=== PATIENT | male | born 1980 | race Caucasian/White ===

== ENCOUNTER 2021-01-20 12:43 | Inpatient (IN) | payer MEDICAID ==
[~2021-01-20] VITALS: Ht 167.6 cm; Wt 46.9 kg
--- NOTE | 2021-01-20 13:30 | NUR ---
BIBS. TO ER BED 6. AAOX4 NOT IN RESP DISTRESS. AMBULATORY. CAME IN FOR A CHRONIC WOUND PERIANALLY TAHT IS EXTENDING TO THE LEFT AND RIGHT BUTTOCKS. WOUND HAS BEEN SINCE LAST MARCH. NOTED RED TISUE THAT HAVE WHITE SPOTS. AWAITING MD FOR REYNA
[2021-01-20 15:35] LABS: BASOPHILS % (AUTO) 0.3 % (0.0-2.0); EOSINOPHILS % (AUTO) 2.2 % (0.0-6.0); LYMPHOCYTES # (AUTO) 0.4 /CMM (0.8-4.8); LYMPHOCYTES % (AUTO) 7.1 % (20.0-44.0); MEAN CORPUSCULAR HGB CONC 32 g/dl (31.0-36.0); MEAN CORPUSCULAR VOLUME 82 fL (80-96); MONOCYTES # (AUTO) 0.6 /CMM (0.1-1.30); MONOCYTES % (AUTO) 10.8 % (2.0-12.0); NEUTROPHILS # (AUTO) 4.4 /CMM (1.8-8.9); NEUTROPHILS % (AUTO) 79.6 % (43.0-81.0); PLATELET COUNT (AUTO) 272 /CMM (150-450); RED BLOOD CELL COUNT(AUTO) 2.11 MIL/uL (4.5-6.0); WHITE BLOOD COUNT (AUTO) 5.6 K/uL (4.3-11.0)
[2021-01-20 15:52] LABS: HEMATOCRIT 17 % (39-51); HEMOGLOBIN 5.5 g/dL (13.5-17.5)
[2021-01-20] MEDS ORDERED: DOXYCYCLINE HYCLATE (100 MG) 100 MG TABLET PO ONE (16:00)
[2021-01-20] MEDS ORDERED: CEFTRIAXONE 1 G in IV D5W 50 ML IM ONE (16:00)
[2021-01-20 16:07] LABS: BAND % (MANUAL) 1 % (0.0-5.0); EOSINOPHILS % (MANUAL) 3 % (0-4); LYMPHOCYTES % (MANUAL) 9 % (16-48); MONOCYTES % (MANUAL) 4 % (0-11.0); NEUTROPHILS % (MANUAL) 83 (42-76)
[2021-01-20] MEDS ORDERED: DOXYCYCLINE HYCLATE (100 MG) 100 MG TABLET ONE (16:17)
[2021-01-20] MEDS ORDERED: LIDOCAINE /MPF 1% VIAL 5 ML VIAL ONE (16:17)
[2021-01-20] MEDS ORDERED: CEFTRIAXONE 1 G VIAL ONE (16:17)
[2021-01-20 16:50] LABS: CALCIUM, SERUM 8.7 mg/dL (8.5-10.1); POTASSIUM 4.9 mmol/L (3.5-5.1)
--- NOTE | 2021-01-20 17:30 | NUR ---
CALLED NURSING SUP FOR TELE BED.
--- NOTE | 2021-01-20 18:04 | NUR ---
CALLED NURSING SUP FOR UPDATE ON COVID TEST.
--- NOTE | 2021-01-20 18:20 | NUR ---
NURSING SUP GAVE 310-2. PATIENT WILL GO UP AFTER CHANGE OF SHIFT. NURSE IS MIMI.
[2021-01-20] MEDS ORDERED: ONDANSETRON HCL/PF 4 MG/2 ML VIAL IVP PRN (18:30)
[2021-01-20] MEDS ORDERED: MAGNESIUM HYDROXIDE 30 ML UDC PO PRN (18:30)
[2021-01-20] MEDS ORDERED: Z GUARD REMEDY 2 OZ OINT TP PRN (18:30)
[2021-01-20] MEDS ORDERED: ACETAMINOPHEN 325 MG TABLET PO PRN (18:30)
[2021-01-20] MEDS ORDERED: HYDROCODONE/APAP 5/325MG TABLET PO PRN (18:30)
[2021-01-20] MEDS ORDERED: ZOLPIDEM TARTRATE 5 MG TABLET PO PRN (18:30)
[2021-01-20] MEDS ORDERED: MAG HYDROX/AL HYDROX/SIMETH 30 ML UDC PO PRN (18:30)
[2021-01-20 19:25] LABS: BILIRUBIN,URINE Negative (NEGATIVE); COLOR,URINE YELLOW (YELLOW); LEUKOCYTE ESTERASE ,URINE Negative (NEGATIVE); NITRITE, URINE Negative (NEGATIVE); PH,URINE 7.5 (5.0-8.0); PROTEIN,URINE Negative (NEGATIVE); UGLUCOSE Negative (NEGATIVE)
--- NOTE | 2021-01-20 19:27 | NUR ---
REPORT GIVEN TO ANUP CLINE FOR TONY
[2021-01-20 19:41] LABS: IRON, SERUM 21 ug/dl (50-175); TOTAL IRON BINDING CAPACITY 171 ug/dl (250-450)
--- NOTE | 2021-01-20 19:51 | NUR ---
VERIFIED WITH TIMOTHY RITCHIE DNP THAT PT IS TO REMAIN TELE PT.
[2021-01-20 20:00] VITALS: BP 97/49
--- NOTE | 2021-01-20 20:21 | NUR ---
BLOOD TRANSFUSION STARTED. VERIFIED BY ANUP CHI
--- NOTE | 2021-01-20 20:38 | NUR ---
VS taken. No noted s/s adverse reaction.
[2021-01-20 20:40] VITALS: BP 97/49
--- NOTE | 2021-01-20 20:51 | NUR ---
pt transported to unit on gurney with emt and rn at bedside w/ acls protocol. nad noted during transport.
[2021-01-20 21:00] VITALS: BP 109/55
--- NOTE | 2021-01-20 21:00 | NUR ---
RN Opening notes Received Pt from ER nurse, ANUP Lala. Pt arrived at the unit with a gurney and ACLS protocol. Pt is alert and orientedX4. Respiration is normal in room air. No SOB. No S/S of distress noted. Pt came with one unit PRBC transfusing. Blood transfusion started at 2019. Blood consent is signed by Pt. No S/S of distress noted. No transfusion reaction noted. IV site at LAC# 20 is clean, intact and infusing well blood transfusion. Skin assessment is done and performed and picture of pt's sacrum is taken placed at pt's chart. Pt's belonging is checked by ANNETTE Higginbotham, signed by pt and placed at pt's chart. Reorient Pt to the room and the use of call light. Pt verbalized understanding. Safety precautions is maintained. Bed at low position, brakes locked, side rails upX2 and call light is within reach. Will continue to monitor.
[2021-01-20 21:30] VITALS: BP 123/63
[2021-01-20] MEDS: FLUCONAZOLE (100 MG) 100 MG TABLET PO SCH (21:44)
--- NOTE | 2021-01-20 22:10 | NUR ---
RN notes Pt refused to have SCD compression. Explained risks and benefits. Offered multiple times. Pt keep refusing. Will continue to monitor.
[2021-01-20 22:30] VITALS: BP 117/57
[2021-01-20 22:42] LABS: RBC,URINE 0-2 /HPF (0-2); WBC,URINE 0-2 /HPF (0-3)
[2021-01-20 22:43] LABS: BACTERIA,URINE Rare /HPF (None Seen); SQUAMOUS EPITHELIAL CELL,UR 0-2 /HPF (None Seen)
[2021-01-20 23:30] VITALS: BP 110/56
[2021-01-21] VITALS (10 sets, daily range): BP systolic 93–110; BP diastolic 43–61
--- NOTE | 2021-01-21 00:30 | NUR ---
RN notes 1 Unit PRBC is done transfusing. No S/S of distress noted. No transfusion reaction noted. VS is stable. Pt tolerated well. Will continue to monitor.
--- NOTE | 2021-01-21 00:40 | NUR ---
RN notes Went to lab to picker and sorter load and unload blood.
--- NOTE | 2021-01-21 00:55 | NUR ---
RN notes Second unit of PRBC is started infusing. PRBC is checked and witness by ANUP Swenson. VS is stable. Afebrile. Pt verbalize understanding. Will continue to monitor.
--- NOTE | 2021-01-21 04:37 | NUR ---
RN notes Second blood transfusion is finished. VS is stable. Afebrile. No S/S of distress noted. No transfusion reaction noted. Pt tolerated well. Will continue to monitor.
[2021-01-21] MEDS: IV NS 0.9% 1,000 ML IV PRN ×2 (04:43→21:12)
--- NOTE | 2021-01-21 06:50 | NUR ---
RN MS closing notes Pt is resting in bed comfortably. Pt is alert and orientedX4. Respiration is normal in room air with O2 sat is 100%. No SOB. No S/S of distress noted. VS is stable. Afebrile. IV site at L forearm# 20 is clean, intact, flushes well and infuising well NS@ 75 ml/hr. Wound care provided. Safety precautions is maintained. Bed at low position, brakes locked, side rails upX2, urinal at the bed side and call light is within reach. Will endorse to morning nurse for TONY.
--- NOTE | 2021-01-21 07:30 | NUR ---
MS RN OPENING NOTES PATIENT IN BED, AWAKE, A/O X 4. PATIENT'S BREATHING EVEN AND UNLABORED, NO S/S OF RESPIRATORY DISTRESS, NO SOB OR DYSPNEA. IV FLUIDS RUNNING. PATIENT TOLERATING ROOM AIR AT 98% O2 SAT. SAFETY PRECAUTIONS IN PLACE: BED LOCKED AND IN LOWEST POSITION, SIDE RAILS UP, URINAL AND CALL LIGHT WITHIN REACH. ENCOURAGED PATIENT TO USE CALL LIGHT IF IN NEED.
[2021-01-21 07:53] LABS: BASOPHILS % (AUTO) 0.5 % (0.0-2.0); EOSINOPHILS % (AUTO) 2.4 % (0.0-6.0); HEMATOCRIT 25 % (39-51); HEMOGLOBIN 8.1 g/dL (13.5-17.5); LYMPHOCYTES # (AUTO) 0.4 /CMM (0.8-4.8); LYMPHOCYTES % (AUTO) 6.9 % (20.0-44.0); MEAN CORPUSCULAR HGB CONC 32 g/dl (31.0-36.0); MEAN CORPUSCULAR VOLUME 84 fL (80-96); MONOCYTES # (AUTO) 0.6 /CMM (0.1-1.30); MONOCYTES % (AUTO) 10.7 % (2.0-12.0); NEUTROPHILS # (AUTO) 4.3 /CMM (1.8-8.9); NEUTROPHILS % (AUTO) 79.5 % (43.0-81.0); PLATELET COUNT (AUTO) 256 /CMM (150-450); WHITE BLOOD COUNT (AUTO) 5.4 K/uL (4.3-11.0)
[2021-01-21 08:12] LABS: CALCIUM, SERUM 8.1 mg/dL (8.5-10.1); CARBON DIOXIDE 20 mmol/L (21-32); CHLORIDE 97 mmol/L (98-107); CREATININE 0.7 mg/dL (0.6-1.3); GLUCOSE 100 mg/dL (74-106); PHOSPHORUS 3.3 mg/dL (2.5-4.9); POTASSIUM 4.2 mmol/L (3.5-5.1); SODIUM SERUM 128 mmol/L (136-145); UREA NITROGEN, BLOOD 13 mg/dL (7-18)
[2021-01-21 08:26] LABS: CHOLESTEROL 56 mg/dL (<200); LDL 18 mg/dL (0-99); THYROID STIMULATING HORMONE 3.888 uIU/mL (0.358-3.74); TRIGLYCERIDES 228 mg/dL (30-150)
[2021-01-21 08:29] LABS: HDL CHOLESTEROL < 10 mg/dL (40-60)
[2021-01-21] MEDS: PANTOPRAZOLE 40 MG TABLET.DR PO SCH (08:35)
[2021-01-21] MEDS: FLUCONAZOLE (100 MG) 100 MG TABLET PO SCH (08:35)
[2021-01-21] MEDS: SULFAMETH/TRIMETH 800/160 MG 1 UDTAB TABLET PO SCH (08:35)
--- NOTE | 2021-01-21 09:00 | NUR ---
ms disla breakfast served,due meds given,tolerated well.
[2021-01-21] MEDS: DOXYCYCLINE 100 MG in IV D5W 100 ML IV SCH ×2 (09:01→21:11)
--- NOTE | 2021-01-21 11:00 | NUR ---
ms disla was seen by dr. parker ceja/ orders made and carried out.
--- NOTE | 2021-01-21 14:50 | NUR ---
ms rn went down for ct abdomen, will wait for result.
--- NOTE | 2021-01-21 15:10 | NUR ---
ms rn came back from ut, all needs attended.
[2021-01-21] MEDS ORDERED: CEFTRIAXONE 1 G in IV D5W 50 ML IV SCH (17:00)
--- NOTE | 2021-01-21 17:52 | NUR ---
ms rn on bed,no distress noted.
[2021-01-21] MEDS ORDERED: HYDROGEL DRESSING 90 GM TUBE TP PRN (18:30)
--- NOTE | 2021-01-21 19:08 | NUR ---
MS RN CHANGE OF SHIFT NOTES PATIENT IN BED, AWAKE, A/O X 4. PATIENT'S BREATHING EVEN AND UNLABORED, NO S/S OF RESPIRATORY DISTRESS, NO SOB OR DYSPNEA. IV FLUIDS RUNNING AT 75ML/HR. PATIENT TOLERATING ROOM AIR AT 95% O2 SAT. WOUND CARE GIVEN, WOUND COVERED WITH FOAM DRESSING. SAFETY PRECAUTIONS IN PLACE: BED LOCKED AND IN LOWEST POSITION, SIDE RAILS UP, URINAL AND CALL LIGHT WITHIN REACH. ENCOURAGED PATIENT TO USE CALL LIGHT IF IN NEED. ENDORSED TO SOCKET WELDER HELPER NURSE.
[2021-01-21] MEDS: ACYCLOVIR 200 MG CAPSULE PO SCH (21:11)
--- NOTE | 2021-01-22 07:36 | NUR ---
MS RN OPENING NOTES RECEIVED PATIENT IN BED AWAKE, A/O X 4. ABLE TO MAKE NEEDS KNOWN, DENIES PAIN OR ANY DISCOMFORTS AT THIS TIME. ON ROOM AIR, BREATHING EVEN AND UNLABORED. IV ACCESS ON LFA G#20 INTACT AND PATENT WITH IVF OF NS @75ML/HR INFUSING WELL. SAFETY PRECAUTIONS IN PLACE: BED LOCKED AND IN LOWEST POSITION, SIDE RAILS UPX2 AND CALL LIGHT WITHIN REACH. WILL CONTINUE TO MONITOR PT ACCORDINGLY.
[2021-01-22 08:06] LABS: *BASOS 0 % (Not Estab.); *COMMENTS Note: (.); *EOS 3 % (Not Estab.); *EOS, ABSOLUTE 0.2 x10E3/uL (0.0-0.4); *HCT 17.5 % (37.5-51.0); *HGB 5.2 g/dL (13.0-17.7); *IMMATURE GRANULOCYTES 1 % (Not Estab.); *IMMATURE GRANULOCYTES(ABS) 0.1 x10E3/uL (0.0-0.1); *LYMPHOCYTES 10 % (Not Estab.); *LYMPHS, ABSOLUTE 0.6 x10E3/uL (0.7-3.1); *MCH 24.9 pg (26.6-33.0); *MCHC 29.7 g/dL (31.5-35.7); *MCV 84 fL (79-97); *MONOCYTES 8 % (Not Estab.); *MONOS, ABSOLUTE 0.5 x10E3/uL (0.1-0.9); *NEUTROPHILS 78 % (Not Estab.); *NEUTROPHILS, ABSOLUTE 4.4 x10E3/uL (1.4-7.0); *PLT 249 x10E3/uL (150-450); *RBC 2.09 x10E6/uL (4.14-5.80); *RDW 18.3 % (11.6-15.4)
[2021-01-22] MEDS: PANTOPRAZOLE 40 MG TABLET.DR PO SCH (08:29)
[2021-01-22] MEDS: FLUCONAZOLE (100 MG) 100 MG TABLET PO SCH (08:30)
[2021-01-22] MEDS: SULFAMETH/TRIMETH 800/160 MG 1 UDTAB TABLET PO SCH (08:30)
[2021-01-22] MEDS: ACYCLOVIR 200 MG CAPSULE PO SCH ×2 (08:46→17:11)
[2021-01-22] MEDS: DOXYCYCLINE 100 MG in IV D5W 100 ML IV SCH ×2 (09:38→20:41)
--- NOTE | 2021-01-22 11:32 | NUR ---
RN NOTES BUTTOCK WOUND AND URINE SPECIMEN COLLECTED. CALLED LAB TO COMPOSITION SIDING WORKER SPECIMENS.
[2021-01-22] MEDS: MEROPENEM 1 G in IV NS 0.9% 100 ML IV SCH ×2 (12:15→21:11)
[2021-01-22 12:23] LABS: BASOPHILS % (AUTO) 0.5 % (0.0-2.0); EOSINOPHILS % (AUTO) 1.4 % (0.0-6.0); HEMATOCRIT 29 % (39-51); HEMOGLOBIN 9.1 g/dL (13.5-17.5); LYMPHOCYTES # (AUTO) 0.3 /CMM (0.8-4.8); LYMPHOCYTES % (AUTO) 6.7 % (20.0-44.0); MEAN CORPUSCULAR HGB CONC 32 g/dl (31.0-36.0); MEAN CORPUSCULAR VOLUME 84 fL (80-96); MONOCYTES # (AUTO) 0.5 /CMM (0.1-1.30); MONOCYTES % (AUTO) 10.3 % (2.0-12.0); NEUTROPHILS # (AUTO) 4.2 /CMM (1.8-8.9); NEUTROPHILS % (AUTO) 81.1 % (43.0-81.0); PLATELET COUNT (AUTO) 241 /CMM (150-450); RED BLOOD CELL COUNT(AUTO) 3.39 MIL/uL (4.5-6.0); WHITE BLOOD COUNT (AUTO) 5.1 K/uL (4.3-11.0)
[2021-01-22 12:33] LABS: CALCIUM, SERUM 8.3 mg/dL (8.5-10.1); CREATININE 0.8 mg/dL (0.6-1.3); PHOSPHORUS 3.1 mg/dL (2.5-4.9); POTASSIUM 4.5 mmol/L (3.5-5.1)
[2021-01-22 12:45] LABS: THYROID STIMULATING HORMONE 2.417 uIU/mL (0.358-3.74); URIC ACID 2.8 mg/dL (2.6-7.2)
[2021-01-22 13:13] LABS: ALBUMIN 2.2 g/dL (3.4-5.0); BILIRUBIN,TOTAL 0.3 mg/dL (0.2-1.0); CALCIUM, SERUM 8.3 mg/dL (8.5-10.1); CREATININE 0.8 mg/dL (0.6-1.3); MAGNESIUM 1.9 mg/dL (1.8-2.4); POTASSIUM 4.4 mmol/L (3.5-5.1); TOTAL PROTEIN, SERUM 7.1 g/dL (6.4-8.2)
[2021-01-22 16:00] VITALS: BP 102/55
[2021-01-22] MEDS ORDERED: MEROPENEM 1 G in IV NS 0.9% 100 ML IV SCH (17:00)
--- NOTE | 2021-01-22 18:40 | NUR ---
MS RN CLOSING NOTES PATIENT AWAKE AND RESTING IN BED AT THIS TIME. A/O X 4. ABLE TO MAKE NEEDS KNOWN. AMBULATORY WITH STEADY GAIT. TOLERATING ROOM AIR WITH NO SOB NOTED DURING SHIFT. IV ACCESS ON LFA G#20 INTACT AND PATENT WITH IVF OF NS @75ML/HR INFUSING WELL, NO S/S OF INFILTRATION AT SITE NOTED. ALL NEEDS AND CARE ATTENDED WELL. SAFETY PRECAUTIONS IN PLACE: BED LOCKED AND IN LOWEST POSITION, SIDE RAILS UPX2 AND CALL LIGHT WITHIN REACH. WILL ENDORSE PLAN OF CARE TO GERIATRIC NURSING ASSISTANT NURSE.
[2021-01-22] MEDS: IV NS 0.9% 1,000 ML IV PRN (19:07)
[2021-01-22 20:00] VITALS: BP 104/58
--- NOTE | 2021-01-22 20:00 | NUR ---
RN NOTES RECEIVED PATIENT IN BED, ALERT AND ORIENTED X4, STABLE ON ROOM AIR, NO COMPLAIN OF PAIN, NO DISTRESS, IVF INFUSING, USES URINAL TO VOID, AMBULATES TO THE TOILET WITH SUPERVISION, KEPT DRY AND CLEAN, WILL CONTINUE TO MONITOR
--- NOTE | 2021-01-23 04:20 | NUR ---
RN NOTES REPORTED BY COLLEGE OF EDUCATION DEAN, TEMP 100.1, RECHECKED TEMP 99.8F ORAL, GIVEN TYLENOL, PATIENT REFUSING TO REMOVE EXTRA BLANKET
--- NOTE | 2021-01-23 04:28 | NUR ---
RN NOTES NOTIFIED SEMICONDUCTOR WAFERS SAW OPERATOR ERMA TEMP 100.1F ORAL, PATIENT ON MERREM AND DOXYCYCLINE, NO NEW ORDER.
[2021-01-23] MEDS: MEROPENEM 1 G in IV NS 0.9% 100 ML IV SCH ×3 (04:34→21:34)
--- NOTE | 2021-01-23 06:30 | NUR ---
RN NOTES PM SHIFT ALERT AND ORIENTED X4, ROOM AIR, NO COMPLAIN OF PAIN, NO DISTRESS, USES URINAL, PROSTITIS BILATERAL BUTTOCKS, KEPT DRY AND CLEAN, AWAITING WOUND CARE CONSULT, MERREM Q8HRS AND DOXYCYCLINE Q12HRS, FOLLOW UP CULTURES, MONITOR H/H, TRANSFUSE PRN, IVF AT 75ML/HR
--- NOTE | 2021-01-23 07:20 | NUR ---
MS RN OPENING NOTES PATIENT AWAKE AND WATCHING TV IN BED AT THIS TIME. A/O X 4. ABLE TO MAKE NEEDS KNOWN. AMBULATORY WITH STEADY GAIT. TOLERATING ROOM AIR WITH NO SOB NOTED. IV ACCESS ON LFA G#20 INTACT AND PATENT WITH IVF OF NS @75ML/HR INFUSING WELL. ALL NEEDS AND CARE ATTENDED WELL. SAFETY PRECAUTIONS IN PLACE: BED LOCKED AND IN LOWEST POSITION, SIDE RAILS UPX2 AND CALL LIGHT WITHIN REACH. WILL CONTINUE TO MONITOR THE PT.
[2021-01-23 08:18] VITALS: BP 90/54
[2021-01-23] MEDS: PANTOPRAZOLE 40 MG TABLET.DR PO SCH (08:23)
--- NOTE | 2021-01-23 08:49 | NUR ---
WOUND CARE CONSULT: PT PRESENTS WITH DRY LESIONS TO INNER BUTTOCKS AND LEFT BUTTOCK, PRESENT ON ADMISSION. PT REPORTS THAT HE HAD LESIONS PREVIOUSLY AND THAT THEY CLEARED UP, THEN RECURRED. DEFER TO INFECTIOUS DISEASE TEAM CURRENTLY ON CASE. DISCUSSED SKIN PROTECTION WITH NURSING STAFF. WILL SEE PRN. ALVAREZ IN AGREEMENT WITH PLAN OF CARE. Addendum: 01/23/21 at 0891 by FELICIA GAUTAM WNDNU Amended: Links added.
[2021-01-23] MEDS: DOXYCYCLINE 100 MG in IV D5W 100 ML IV SCH (09:01)
[2021-01-23] MEDS: SULFAMETH/TRIMETH 800/160 MG 1 UDTAB TABLET PO SCH (09:02)
[2021-01-23] MEDS: ACYCLOVIR 200 MG CAPSULE PO SCH ×2 (09:02→16:29)
[2021-01-23] MEDS: FLUCONAZOLE (100 MG) 100 MG TABLET PO SCH (09:02)
[2021-01-23 09:07] LABS: *% CD 4 POS. LYMPH 14.2 % (30.8-58.5); *% CD 8 POS. LYMPH 66.4 % (12.0-35.5); *ABSOLUTE CD 4 HELPER 85 /uL (359-1519); *ABSOLUTE CD 8 SUPPRESSOR 398 /uL (109-897); *CD4/CD8 RATIO 0.21 (0.92-3.72)
--- NOTE | 2021-01-23 10:44 | NUR ---
RN MS NOTES IV ACCESS ON LFA #20 WAS LEAKING. RN REPLACED THAT IV ACCESS WITH A NEW ONE GAUGE #24.
[2021-01-23] MEDS ORDERED: AZITHROMYCIN 250 MG TABLET PO SCH (12:15)
[2021-01-23 16:10] VITALS: BP 115/58
[2021-01-23] MEDS ORDERED: SILVER NITRATE APPLICATOR 1 EA BOX TP ONE (17:30)
[2021-01-23] MEDS ORDERED: LIDOCAINE 1%-EPI 1:100,000 20 ML VIAL TP ONE (17:30)
--- NOTE | 2021-01-23 18:08 | NUR ---
RN NOTES PT FOR EXCISIONAL DEBRIDEMENT OF B/L BUTTOCKS WOUNDS TOMORROW. PROCEDURES EXPLAINED TO PT AND VERBALIZED UNDERSTANDING. CONSENT SIGNED AND FILED IN HIS CHART. WILL PREPARE SUPPLIES AND WILL ENDORSE.
--- NOTE | 2021-01-23 18:42 | NUR ---
MS RN CLOSING NOTES PATIENT IN BED WATCHING TV AT THIS TIME. A/O X 4. ABLE TO MAKE NEEDS KNOWN. TOLERATING ROOM AIR WITH NO SOB NOTED DURING SHIFT. IV ACCESS ON LFA G#22 INTACT AND PATENT, IVF OF NS @75ML/HR INFUSING WELL, NO S/S OF INFILTRATION AT SITE NOTED. ALL NEEDS AND CARE ATTENDED WELL. SAFETY MEASURES IN PLACE: BED LOCKED AND IN LOWEST POSITION, SIDE RAILS UPX2 AND CALL LIGHT WITHIN REACH. WILL ENDORSE TONY TO PLANT AND EQUIPMENT WORKER NURSE.
[2021-01-23 20:00] VITALS: BP 110/68
[2021-01-23] MEDS: IV NS 0.9% 1,000 ML IV PRN (21:34)
[2021-01-23] MEDS: DOXYCYCLINE HYCLATE (100 MG) 100 MG TABLET PO SCH (21:35)
[2021-01-24] MEDS: MEROPENEM 1 G in IV NS 0.9% 100 ML IV SCH ×3 (04:59→22:17)
--- NOTE | 2021-01-24 07:59 | NUR ---
MS RN OPENING NOTES PATIENT IN BED WATCHING TV AT THIS TIME. A/O X 4. ABLE TO MAKE NEEDS KNOWN. TOLERATING ROOM AIR WITH NO SOB NOTED DURING SHIFT. IV ACCESS ON LFA G#22 INTACT AND PATENT, IVF OF NS @75ML/HR INFUSING WELL, NO S/S OF INFILTRATION AT SITE NOTED. ALL NEEDS AND CARE ATTENDED WELL. SAFETY MEASURES IN PLACE: BED LOCKED AND IN LOWEST POSITION, SIDE RAILS UPX2 AND CALL LIGHT WITHIN REACH.
[2021-01-24 08:00] VITALS: BP 100/57
[2021-01-24 09:23] LABS: BASOPHILS % (AUTO) 0.7 % (0.0-2.0); EOSINOPHILS % (AUTO) 1.2 % (0.0-6.0); HEMATOCRIT 30 % (39-51); HEMOGLOBIN 9.7 g/dL (13.5-17.5); LYMPHOCYTES # (AUTO) 0.4 /CMM (0.8-4.8); LYMPHOCYTES % (AUTO) 10.8 % (20.0-44.0); MEAN CORPUSCULAR HGB CONC 32 g/dl (31.0-36.0); MEAN CORPUSCULAR VOLUME 83 fL (80-96); MONOCYTES # (AUTO) 0.3 /CMM (0.1-1.30); MONOCYTES % (AUTO) 10.1 % (2.0-12.0); NEUTROPHILS # (AUTO) 2.6 /CMM (1.8-8.9); NEUTROPHILS % (AUTO) 77.2 % (43.0-81.0); PLATELET COUNT (AUTO) 203 /CMM (150-450); RED BLOOD CELL COUNT(AUTO) 3.61 MIL/uL (4.5-6.0); WHITE BLOOD COUNT (AUTO) 3.4 K/uL (4.3-11.0)
[2021-01-24] MEDS: FLUCONAZOLE (100 MG) 100 MG TABLET PO SCH (09:36)
[2021-01-24] MEDS: DOXYCYCLINE HYCLATE (100 MG) 100 MG TABLET PO SCH ×2 (09:36→22:10)
[2021-01-24] MEDS: SULFAMETH/TRIMETH 800/160 MG 1 UDTAB TABLET PO SCH (09:36)
[2021-01-24] MEDS: PANTOPRAZOLE 40 MG TABLET.DR PO SCH (09:36)
[2021-01-24] MEDS: ACYCLOVIR 200 MG CAPSULE PO SCH ×2 (09:42→17:39)
[2021-01-24 09:54] LABS: ALBUMIN 2.3 g/dL (3.4-5.0); BILIRUBIN,TOTAL 0.4 mg/dL (0.2-1.0); CALCIUM, SERUM 8.5 mg/dL (8.5-10.1); CREATININE 0.6 mg/dL (0.6-1.3); MAGNESIUM 1.8 mg/dL (1.8-2.4); PHOSPHORUS 1.9 mg/dL (2.5-4.9); POTASSIUM 3.5 mmol/L (3.5-5.1); TOTAL PROTEIN, SERUM 7.6 g/dL (6.4-8.2)
[2021-01-24] MEDS ORDERED: K PHOS NEUTRAL 250 MG TABLET PO ONE (13:00)
[2021-01-24] MEDS ORDERED: LIDOCAINE 4% PF AMPUL 40 MG/ML AMPUL TP ONE (14:30)
[2021-01-24 16:00] VITALS: BP 116/57
--- NOTE | 2021-01-24 17:00 | NUR ---
RN NOTES PATIENT WOUND DEBRIEDMENT BY YENIFER QUALITY ASSURANCE DONE, PT TOLERATED PROCEDURE WELL , WOUND TREATMENT AND DRESSING CHANGE DONE ORDERED
[2021-01-24] MEDS: TRIUMEQ PO SCH (18:32)
--- NOTE | 2021-01-24 18:42 | NUR ---
MS RN CLOSING NOTES PATIENT IN BED WATCHING TV AT THIS TIME. A/O X 4. ABLE TO MAKE NEEDS KNOWN. TOLERATING ROOM AIR WITH NO SOB NOTED DURING SHIFT. IV ACCESS ON LFA G#22 INTACT AND PATENT, IVF OF NS @75ML/HR INFUSING WELL, NO S/S OF INFILTRATION AT SITE NOTED. ALL NEEDS AND CARE ATTENDED WELL. SAFETY MEASURES IN PLACE: BED LOCKED AND IN LOWEST POSITION, SIDE RAILS UPX2 AND CALL LIGHT WITHIN REACH.
[2021-01-24 20:00] VITALS: BP 102/54
--- NOTE | 2021-01-24 20:00 | NUR ---
MS RN OPENING NOTES PATIENT IN ASSISTED TO BATHROOM AND BACK TO BED. REPORTS HAVIGN SMALL BM. DRESSING HAD TO BE REOMVED FOR BATHROOM USE. BUTTOCK WOUND CLEANED AND DRESSING CHANGED PER ORDERS. A/O X 4. ON ROOM AIR DENIES SOB IV ACCESS ON LFA G#22 INTACT AND PATENT, IVF OF NS @75ML/HR NO S/S OF INFILTRATION AT SITE SAFETY MEASURES IN PLACE: BED LOCKED AND IN LOWEST POSITION, SIDE RAILS UPX2 AND CALL LIGHT WITHIN REACH. VERBALIZED UNDERSTANDING TO CALL FOR ASSISTANCE IF NEEDED
[2021-01-24] MEDS: IV NS 0.9% 1,000 ML IV PRN (22:17)
[2021-01-25] MEDS: MEROPENEM 1 G in IV NS 0.9% 100 ML IV SCH ×2 (04:36→13:00)
--- NOTE | 2021-01-25 06:20 | NUR ---
pt refused am labs states' "its too early come back later."
--- NOTE | 2021-01-25 07:26 | NUR ---
MS RN CLOSING NOTES PATIENT IN ASSISTED TO BATHROOM AND BACK TO BED. REPORTS HAVIGN SMALL BM. DRESSING HAD TO BE REOMVED FOR BATHROOM USE. BUTTOCK WOUND CLEANED AND DRESSING CHANGED PER ORDERS. A/O X 4. ON ROOM AIR DENIES SOB IV ACCESS ON LFA G#22 INTACT AND PATENT, IVF OF NS @75ML/HR NO S/S OF INFILTRATION AT SITE SAFETY MEASURES IN PLACE: BED LOCKED AND IN LOWEST POSITION, SIDE RAILS UPX2 AND CALL LIGHT WITHIN REACH. Addendum: 01/25/21 at 0245 by JALIL SHULTZ RN OPENING
[2021-01-25] MEDS: SULFAMETH/TRIMETH 800/160 MG 1 UDTAB TABLET PO SCH (08:14)
[2021-01-25] MEDS: TRIUMEQ PO SCH (08:14)
[2021-01-25] MEDS: PANTOPRAZOLE 40 MG TABLET.DR PO SCH (08:14)
[2021-01-25] MEDS: DOXYCYCLINE HYCLATE (100 MG) 100 MG TABLET PO SCH ×2 (08:15→21:12)
[2021-01-25] MEDS: ACYCLOVIR 200 MG CAPSULE PO SCH ×2 (08:15→16:15)
[2021-01-25] MEDS: FLUCONAZOLE (100 MG) 100 MG TABLET PO SCH (08:15)
[2021-01-25] MEDS: DAKINS FULL STRENGTH (0.5%) 480 ML BOTTLE TOP SCH (08:20)
--- NOTE | 2021-01-25 11:22 | NUR ---
RN MS NOTES PT SEEN BY , PLAN OF CARE DISCUSSED WITH PATIENT
--- NOTE | 2021-01-25 11:39 | NUR ---
Icing Maker Consult: therapeutic activities services worker consultation completed today. Reason for consultation is community resources. Patient is a 40 year old male, who came to the ED for treatment of buttocks wound. Patient is also HIV positive. SW met with the patient in his hospital room on the med/surg unit. Patient was awake, lying down in bed, receptive to meeting with this SW. Patient is oriented x 4. Patient was cooperative with this SW, engaged in dialogue, and maintained appropriate eye contact throughout this interview. Patient reports that he lives with friends [address], [place] [address], however since he became sick about 1 month ago, he moved in with his mother, Ayesha Arzate, [address] [place] [address]. Patient gave verbal consent for staff to speak with his mother, for care coordination, . Patient reports that he is independent with all ADL's. Patient has emergency [employer]. 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 Patient reports being diagnosed as HIV positive in 2007. Patient report being compliant with his medications. Patient reports that he recently enrolled at a new HIV clinic, [facility] [address], [place] [address], . 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 Patient denies use of alcohol, cigarettes, or any other drugs. Discharge plans discussed, and patient stated that he will be returning to his mother's home. SW explored patient's needs for community resources, and patient stated that he did not need any resources at this time. SW will remain available to this patient, as needed.
[2021-01-25 12:59] LABS: BASOPHILS % (AUTO) 0.2 % (0.0-2.0); EOSINOPHILS % (AUTO) 2.3 % (0.0-6.0); HEMATOCRIT 28 % (39-51); HEMOGLOBIN 9.1 g/dL (13.5-17.5); LYMPHOCYTES # (AUTO) 0.3 /CMM (0.8-4.8); LYMPHOCYTES % (AUTO) 9.9 % (20.0-44.0); MEAN CORPUSCULAR HGB CONC 32 g/dl (31.0-36.0); MEAN CORPUSCULAR VOLUME 83 fL (80-96); MONOCYTES # (AUTO) 0.3 /CMM (0.1-1.30); MONOCYTES % (AUTO) 7.9 % (2.0-12.0); NEUTROPHILS # (AUTO) 2.7 /CMM (1.8-8.9); NEUTROPHILS % (AUTO) 79.7 % (43.0-81.0); PLATELET COUNT (AUTO) 205 /CMM (150-450); RED BLOOD CELL COUNT(AUTO) 3.43 MIL/uL (4.5-6.0); WHITE BLOOD COUNT (AUTO) 3.4 K/uL (4.3-11.0)
[2021-01-25 14:03] LABS: CALCIUM, SERUM 8.4 mg/dL (8.5-10.1); CREATININE 0.6 mg/dL (0.6-1.3); MAGNESIUM 1.9 mg/dL (1.8-2.4); PHOSPHORUS 2.4 mg/dL (2.5-4.9); POTASSIUM 3.8 mmol/L (3.5-5.1)
[2021-01-25] MEDS ORDERED: K PHOS NEUTRAL 250 MG TABLET PO ONE (15:30)
[2021-01-25 16:00] VITALS: BP 96/53
[2021-01-25] MEDS: CEFTRIAXONE 1 G in IV D5W 50 ML IV SCH (16:17)
--- NOTE | 2021-01-25 18:42 | NUR ---
MS RN CLOSING NOTES PATIENT IN ASSISTED TO BATHROOM AND BACK TO BED. REPORTS HAVIGN SMALL BM. DRESSING HAD TO BE REOMVED FOR BATHROOM USE. BUTTOCK WOUND CLEANED AND DRESSING CHANGED PER ORDERS. A/O X 4. ON ROOM AIR DENIES SOB IV ACCESS ON LFA G#22 INTACT AND PATENT, IVF OF NS @75ML/HR NO S/S OF INFILTRATION AT SITE SAFETY MEASURES IN PLACE: BED LOCKED AND IN LOWEST POSITION, SIDE RAILS UPX2 AND CALL LIGHT WITHIN REACH. Plan of care discussed with dr aiken
--- NOTE | 2021-01-25 19:50 | NUR ---
MS RN NOTES RECEIVED ON BED SLEEPING,AROUSABLE TO VERBAL STIMULI,S/P WOUND DEBRIDEMENT ON BUTTOCKS,DRESSING INTACT AND DRY.AMBULATES WITH STEADY GAIT.IVF NS 75ML/HR RATE INFUSING WELL ON LFA,SITE PATENT.CALL LIGHT IN REACH,NEEDS ANTICIPATED.
[2021-01-25 20:00] VITALS: BP 129/76
[2021-01-25] MEDS ORDERED: TRIUMEQ PO SCH (21:00)
--- NOTE | 2021-01-25 21:00 | NUR ---
MS RN NOTES DUE PO MEDS ADMINISTERED,TAKEN WELL.DENIES PAIN DISCOMFORTS.
--- NOTE | 2021-01-26 07:04 | NUR ---
MS RN NOTES SLEEPING MOST OF THE NIGHT,AMBULATES TO THE TOILET,CALL LIGHT IN REACH,NEEDS ATTENDED.
--- NOTE | 2021-01-26 07:49 | NUR ---
MS RN OPENING NOTE PT RECEIVED IN BED, AWAKE AND RESPONSIVE. PT IS A/O X 4 WITH NO C/O AT THIS TIME. PT IS ON ROOM AIR WITH NO S/SX OF RESPIRATORY DISTRESS OR SOB AT THIS TIME. PT HAS AN IV ACCESS ON LEFT FOREARM G#22 PATENT, INTACT AND FLUSHING WELL WITH NO S/SX OF INFECTION, INFILTRATION OR IRRITATION, RUNNING NS AT 75 ML/HR. PT IS AMBULATORY WITH STEADY GAIT AND HAS BRP. SAFETY MEASURES IN PLACE: BED IN LOWEST, LOCKED POSITION WITH BOTH UPPER SIDE RAILS UP X 2. CALL LIGHT PLACED WITHIN REACH. WILL CONTINUE TO MONITOR.
[2021-01-26 07:55] LABS: CALCIUM, SERUM 8.8 mg/dL (8.5-10.1); CREATININE 0.6 mg/dL (0.6-1.3); PHOSPHORUS 2.6 mg/dL (2.5-4.9); POTASSIUM 4.2 mmol/L (3.5-5.1)
[2021-01-26 07:59] LABS: HEMOGLOBIN 7.7 g/dL (13.5-17.5)
[2021-01-26 08:00] VITALS: BP 97/58
[2021-01-26 08:04] LABS: BASOPHILS % (AUTO) 1.2 % (0.0-2.0); EOSINOPHILS % (AUTO) 2.7 % (0.0-6.0); HEMATOCRIT 24 % (39-51); LYMPHOCYTES # (AUTO) 0.4 /CMM (0.8-4.8); LYMPHOCYTES % (AUTO) 10.5 % (20.0-44.0); MEAN CORPUSCULAR HGB CONC 32 g/dl (31.0-36.0); MEAN CORPUSCULAR VOLUME 84 fL (80-96); MONOCYTES # (AUTO) 0.5 /CMM (0.1-1.30); MONOCYTES % (AUTO) 11.8 % (2.0-12.0); NEUTROPHILS % (AUTO) 73.8 % (43.0-81.0); PLATELET COUNT (AUTO) 201 /CMM (150-450); WHITE BLOOD COUNT (AUTO) 4.1 K/uL (4.3-11.0)
[2021-01-26] MEDS: PANTOPRAZOLE 40 MG TABLET.DR PO SCH (08:21)
[2021-01-26] MEDS: DOXYCYCLINE HYCLATE (100 MG) 100 MG TABLET PO SCH (08:25)
[2021-01-26] MEDS: FLUCONAZOLE (100 MG) 100 MG TABLET PO SCH (08:25)
[2021-01-26] MEDS: DAKINS FULL STRENGTH (0.5%) 480 ML BOTTLE TOP SCH (08:25)
[2021-01-26] MEDS: SULFAMETH/TRIMETH 800/160 MG 1 UDTAB TABLET PO SCH (08:25)
[2021-01-26] MEDS: ACYCLOVIR 200 MG CAPSULE PO SCH ×2 (08:25→17:25)
[2021-01-26] MEDS: IV NS 0.9% 1,000 ML IV PRN (08:58)
[2021-01-26] MEDS ORDERED: AZIT250T PO (13:14)
[2021-01-26] MEDS ORDERED: LEVO500T90 PO (13:14)
[2021-01-26] MEDS ORDERED: SODI473S9 TOP (13:14)
[2021-01-26] MEDS ORDERED: ACYC200C PO (13:14)
[2021-01-26] MEDS ORDERED: Sulfameth/Trimeth 800/160 Mg PO (13:14)
[2021-01-26] MEDS ORDERED: FLUC100T8 PO (13:14)
[2021-01-26] MEDS ORDERED: ALLA266C2 TP (13:14)
[2021-01-26] MEDS ORDERED: SULF1TAB48 PO (13:17)
[2021-01-26 16:00] VITALS: BP 110/64
[2021-01-26] MEDS: CEFTRIAXONE 1 G in IV D5W 50 ML IV SCH (16:06)
--- NOTE | 2021-01-26 18:41 | NUR ---
MS CONTACT LENS MOLDER NOTE PT DISCHARGED TO HOME. PT IS A/O X 4, MEDICALLY STABLE, VITAL SIGNS WNL, AND HAS NO C/O PAIN AT THIS TIME. DISCHARGE INSTRUCTIONS AND EDUCATION GIVEN TO PATIENT WITH SUCCESSFUL RETURN DEMONSTRATION AND VERBALIZATION OF UNDERSTANDING. PT EDUCATED ON CLEANING WOUND, ALONGSIDE MOTHER, WITH SUCCESSFUL RETURN DEMONSTRATION. IV ACCESS REMOVED. ID ARM BAND REMOVED. BELONGINGS LIST SIGNED, COPIED, AND GIVEN TO PATIENT/FILED IN CHART. ALLL CARE, NEEDS, MEDICATIONS AND TREATMENTS GIVEN ORDERED. PT LEFT UNIT AT 18:15 ACCOMPANIED BY ME AND HIS MOTHER, AMBULATORY WITH STEADY GAIT. CHARGE NURSE AND MD AWARE. Addendum: 01/26/21 at 1843 by CHINYERE SUAREZ RN PT REFUSED WOUND CARE AT DISCHARGE AND REFUSED PHOTO.
[2021-01-26] MEDS ORDERED: HOME MED MISCELLANEOUS PO SCH (21:00)
== END 2021-01-26 18:30 | disposition home or self-care (01) | DRG 254 ==
LOC: ER 12:52 → TELE 19:01 → MED 22:20
PROVIDERS: ATTEND Student in an Organized Health Care Education/Training Program
PROC: 30233N1 Transfusion of Nonautologous Red Blood Cells into Peripheral Vein, Percutaneous Approach (ICD-10-PCS; 2021-01-20)
PROC: 0JB90ZZ Excision of Buttock Subcutaneous Tissue and Fascia, Open Approach (ICD-10-PCS; principal; 2021-01-24)
DX: K62.89 Other specified diseases of anus and rectum (principal); E87.1 Hypo-osmolality and hyponatremia; Z20.822 Contact with and (suspected) exposure to COVID-19; L89.323 Pressure ulcer of left buttock, stage 3; L89.313 Pressure ulcer of right buttock, stage 3; E86.1 Hypovolemia; Z88.0 Allergy status to penicillin; D64.9 Anemia, unspecified; R64 Cachexia; B20 Human immunodeficiency virus [HIV] disease; F15.11 Other stimulant abuse, in remission; K52.9 Noninfective gastroenteritis and colitis, unspecified; N28.9 Disorder of kidney and ureter, unspecified; B96.20 Unspecified Escherichia coli [E. coli] as the cause of diseases classified elsewhere; B95.7 Other staphylococcus as the cause of diseases classified elsewhere; Z59.0 Homelessness; Z91.14 Patient's other noncompliance with medication regimen
CPT/HCPCS: 36415; 71045-TC; 80048-TC; 80053-TC; 80061-TC; 81001; 82533; 83540-TC; 83735-TC; 84100-TC; 84300-TC; 84443-TC; 84550-TC; 85025-TC; 86360; 86850-TC; 87040-TC; 87070-TC; 87081-TC; 87086-TC; 87186-TC; A6248; A6253; A6403; C9803; G0378; J0696; J2185; J3490; J7030; J7050; J7060; J7070; P9016-BL